=== PATIENT | male | born 1980 | race Caucasian/White ===

== ENCOUNTER 2016-12-28 16:00 | Emergency (ER) | payer SELFPAY ==
[2016-12-28 16:47] LABS: Hematocrit 44 % (42-52); Hemoglobin 15.1 g/dl (14.0-18.0); Mean Corpuscular HGB Conc 34 g/dl (31-36); Mean Corpuscular Hemoglobin 29 pg (27-31); Mean Corpuscular Volume 85 fL (80-94); Mean Platelet Volume 9 um3 (7.4-10.4); Red Blood Count 5.16 10^6/ul (4.0-5.4); Red Cell Distribution Width 14 % (10.5-15); White Blood Count 8.9 10^3/ul (3.5-10.8)
[2016-12-28 17:09] LABS: ALT 13 U/L (7-52); Albumin 4.4 g/dL (3.2-5.2); Alkaline Phosphatase 56 U/L (34-104); BUN/Creatinine Ratio 13.6 (8-20); Blood Urea Nitrogen 16 mg/dL (6-24); CO2 Carbon Dioxide 25 mmol/L (22-32); Calcium 9.3 mg/dL (8.6-10.3); Chloride 99 mmol/L (101-111); EGFR African American 89.8 (>60); EGFR Non-African American 69.8 (>60); Glucose 106 mg/dL (70-100); Sodium 134 mmol/L (133-145); Total Protein 7.4 g/dL (6.4-8.9)
[2016-12-28] MEDS ORDERED: Iodixanol* (CONTRAST) 320 MG/ML 100 ML SDV IV ONE (17:13)
[2016-12-28 17:41] LABS: Anion Gap 10 mmol/L (2-11)
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
[2016-12-28 17:55] VITALS: BP 157/92
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
[2016-12-28 19:50] LABS: Benzodiazepine Urine Screen None Detected (None Detect)
== END 2016-12-28 18:34 | disposition home or self-care (01) ==
LOC: ED 16:00
DX: M54.2 Cervicalgia (principal); V89.2XXA Person injured in unspecified motor-vehicle accident, traffic, initial encounter; Y92.9 Unspecified place or not applicable; E11.9 Type 2 diabetes mellitus without complications; I10 Essential (primary) hypertension; Z87.891 Personal history of nicotine dependence
CPT/HCPCS: 36415; 70450; 71260; 72125; 80053; 80307; 85025; 96360; 96374; 99282; Q9967